=== PATIENT | female | born 1975 | race Caucasian/White ===

== ENCOUNTER 2017-11-07 09:43 | Emergency (ER) | payer OTHER ==
[~2017-11-07] VITALS: Ht 162.6 cm; Wt 68.0 kg
[~2017-11-07 09:43] MED LIST: BUTALB-ACETAMI1 EACH; CLONAZEPAM0.5 MG; IMITREX100 MG; MEDROLPACK PO; VISTARIL25 MG; ZOLOFT20 MG/ML
== END 2017-11-07 13:01 | disposition home or self-care (01) ==
LOC: ER 09:43
DX: R00.2 Palpitations (principal); F06.4 Anxiety disorder due to known physiological condition

== ENCOUNTER 2017-12-06 10:11 | Emergency (ER) | payer OTHER ==
[~2017-12-06] VITALS: Ht 167.6 cm; Wt 68.0 kg
== END 2017-12-06 12:41 | disposition home or self-care (01) ==
LOC: ER 10:11
DX: R00.2 Palpitations (principal); F06.4 Anxiety disorder due to known physiological condition

== ENCOUNTER 2018-09-23 13:11 | Emergency (ER) | payer OTHER ==
[~2018-09-23] VITALS: Ht 167.6 cm; Wt 64.0 kg
[2018-09-23] MEDS ORDERED: CELEBREX200MG PO (16:00)
== END 2018-09-23 16:30 | disposition home or self-care (01) ==
LOC: ER 13:11
DX: R07.89 Other chest pain (principal); M94.0 Chondrocostal junction syndrome [Tietze]

== ENCOUNTER 2020-03-12 10:34 | Outpatient (CLI) | payer OTHER ==
[~2020-03-12 10:34] MED LIST changes: +CELEBREX200MG PO
== END 2020-03-12 11:01 | disposition home or self-care (01) ==
LOC: SONOGRAMA 10:34
PROVIDERS: ATTEND Pathology Anatomic Pathology & Clinical Pathology
DX: E04.1 Nontoxic single thyroid nodule (principal)

== ENCOUNTER 2020-06-23 09:51 | Emergency (ER) | payer OTHER ==
[~2020-06-23] VITALS: Ht 167.6 cm; Wt 68.0 kg
[2020-06-23] MEDS ORDERED: IMITREX100 MG (10:12)
== END 2020-06-23 12:23 | disposition home or self-care (01) ==
LOC: ER 09:51
DX: M62.838 Other muscle spasm (principal); M54.2 Cervicalgia

== ENCOUNTER 2023-04-30 07:03 | Outpatient (CLI) | payer OTHER | END 2023-04-30 07:04 | disposition home or self-care (01) | LOC: NUCLEAR 07:03 | DX: K76.0 Fatty (change of) liver, not elsewhere classified (principal); R74.8 Abnormal levels of other serum enzymes ==

== ENCOUNTER 2024-06-29 08:14 | Outpatient (CLI) | payer OTHER | END 2024-06-29 08:17 | disposition home or self-care (01) | LOC: SONOGRAMA 08:14 | DX: M25.521 Pain in right elbow (principal) ==

== ENCOUNTER → 2025-04-19 07:05 | Outpatient (CLI) | payer OTHER | END | disposition home or self-care (01) | LOC: NUCLEAR 07:05 | DX: M88.9 Osteitis deformans of unspecified bone (principal) ==